=== PATIENT | female | born 1960 | race Caucasian/White ===

== ENCOUNTER → 2022-06-15 | Outpatient (CLI) | payer OTHER, BC ==
[2022-06-15 14:32] LABS: ALBUMIN 4.3 GM/DL (3.2-4.5)
[2022-06-15 14:33] LABS: POTASSIUM 4.3 MMOL/L (3.6-5.0)
[2022-06-15 14:34] LABS: CALCIUM 9.1 MG/DL (8.5-10.1)
[2022-06-15 14:35] LABS: TOTAL PROTEIN 6.8 GM/DL (6.4-8.2)
[2022-06-15 14:37] LABS: BILIRUBIN,TOTAL 0.6 MG/DL (0.1-1.0)
[2022-06-15 14:39] LABS: CREATININE SERUM 1.01 MG/DL (0.60-1.30)
== END ==
LOC: LABNPT 14:20
PROVIDERS: ATTEND Nurse Practitioner Family
DX: Z01.89 Encounter for other specified special examinations (principal)
CPT/HCPCS: 80053; 82150; 83690; 86141